=== PATIENT | female | born 1970 | race Caucasian/White ===

== ENCOUNTER 2019-01-08 14:09 | Emergency (ER) | payer MEDICARE, MEDICAID ==
[~2019-01-08] VITALS: Ht 170.2 cm; Wt 68.2 kg
[2019-01-08 14:25] VITALS: Ht 170.2 cm; Wt 68.2 kg
[2019-01-08] MEDS ORDERED: LATUDA40 MG PO (14:26)
[2019-01-08] MEDS ORDERED: NEURONTIN600 MG PO (14:27)
[2019-01-08] MEDS ORDERED: PROTONIX40 MG PO (14:27)
[2019-01-08] MEDS ORDERED: PHENERGAN25 M1 PO (14:27)
[2019-01-08] MEDS ORDERED: ANUSOL-HC25 MG RC (16:48)
[2019-01-08] MEDS ORDERED: DULCOLAX5 MG PO (17:03)
[2019-01-08 17:20] VITALS: BP 125/68
== END 2019-01-08 17:21 | disposition home or self-care (01) ==
LOC: D.ER 14:09
DX: K64.4 Residual hemorrhoidal skin tags (principal); F17.200 Nicotine dependence, unspecified, uncomplicated

== ENCOUNTER 2019-02-04 06:17 | Day surgery (SDC) | payer MEDICARE, MEDICAID ==
[~2019-02-04] VITALS: Ht 170.2 cm; Wt 68.0 kg
[~2019-02-04 06:17] MED LIST: ANUSOL-HC25 MG RC; DULCOLAX5 MG PO; HYDROCODON-ACE1 EAC2 PO; LATUDA40 MG PO; NEURONTIN600 MG PO; PHENERGAN25 M1 PO; PROTONIX40 MG PO
[2019-02-04] MEDS ORDERED: CYCLOBENZAPRINE10 MG PO ×2 (07:22→10:25)
[2019-02-04] MEDS ORDERED: ROBAXIN500 MG PO (07:23)
[2019-02-04 07:24] VITALS: BP 126/72; Ht 170.2 cm; Wt 68.0 kg
[2019-02-04 08:15] LABS: HEMATOCRIT 38.6 % (36.0-48.0); HEMOGLOBIN 13.1 g/dL (12-16); MCH 29.4 pg (26.0-34.0); MCHC 33.9 g/dL (31.0-37.0); MCV 86.5 fL (80.0-100.0); MEAN PLATELET VOLUME 11.8 fL (7.4-10.4); RBC 4.46 10x6/uL (4.00-5.40); RDW 13.3 % (11.5-14.5); WBC 3.8 10x3/uL (4.8-10.8)
[2019-02-04] MEDS ORDERED: MIRALAX17 GM PO (10:26)
[2019-02-04] MEDS ORDERED: HYDROCODON-ACE1 EAC7 PO (10:26)
== END 2019-02-04 12:30 | disposition home or self-care (01) ==
LOC: D.OPS 06:17
PROVIDERS: Anesthesiology; ATTEND Surgery
DX: K64.5 Perianal venous thrombosis (principal); Z01.812 Encounter for preprocedural laboratory examination

== ENCOUNTER 2019-05-19 20:28 | Emergency (ER) | payer MEDICARE, MEDICAID ==
[~2019-05-19] VITALS: Ht 170.2 cm; Wt 70.9 kg
[~2019-05-19 20:28] MED LIST changes: +CYCLOBENZAPRINE10 MG PO; +HYDROCODON-ACE1 EAC7 PO; +MIRALAX17 GM PO; +ROBAXIN500 MG PO
[2019-05-19 20:43] VITALS: Ht 170.2 cm; Wt 70.9 kg
[2019-05-19] MEDS ORDERED: KEFLEX500 MG PO (23:35)
[2019-05-20 00:09] VITALS: BP 123/85
== END 2019-05-20 00:08 | disposition home or self-care (01) ==
LOC: D.ER 20:28
DX: S51.011A Laceration without foreign body of right elbow, initial encounter (principal); W22.8XXA Striking against or struck by other objects, initial encounter

== ENCOUNTER 2020-05-04 07:05 | Day surgery (SDC) | payer MEDICARE, MEDICAID ==
[~2020-05-04] VITALS: Ht 170.2 cm; Wt 66.2 kg
[~2020-05-04 07:05] MED LIST changes: +KEFLEX500 MG PO
[2020-05-04 07:50] LABS: BASOPHILS 0.6 % (0-2); EOSINOPHILS 5.7 % (0-7); HEMATOCRIT 45.4 % (36.0-48.0); HEMOGLOBIN 15.4 g/dL (12-16); IMMATURE GRANULOCYTES 0.2 % (0-5); LYMPHOCYTES 31.8 % (15-50); MCH 29.6 pg (26.0-34.0); MCHC 33.9 g/dL (31.0-37.0); MCV 87.3 fL (80.0-100.0); MEAN PLATELET VOLUME 12.2 fL (7.4-10.4); MONOCYTES 6.9 % (2-11); NEUTROPHILS 54.8 % (40-80); PLATELET COUNT 144 10x3/uL (130-400); RDW 13.3 % (11.5-14.5); WBC 4.9 10x3/uL (4.8-10.8)
[2020-05-04 07:55] LABS: ANION GAP 11.6 mmol/L (8-16); CALCIUM 9.2 mg/dL (8.5-10.1); CARBON DIOXIDE 27.2 mmol/L (21.0-32.0); CREATININE - SERUM 0.9 mg/dL (0.6-1.3); POTASSIUM - SERUM 3.8 mmol/L (3.5-5.1)
[2020-05-04 08:15] VITALS: BP 108/71; Ht 170.2 cm; Wt 66.2 kg
[2020-05-04] MEDS ORDERED: HYDROCODON-ACE1 EA10 PO (08:29)
[2020-05-04] MEDS ORDERED: ZANAFLEX4 MG PO (08:30)
[2020-05-04] MEDS ORDERED: HYDROCODON-ACE1 EAC7 PO (10:38)
--- NOTE | 2020-05-04 13:13 | NUR ---
1235 ALL DC INSTRUCTIONS GIVEN. DC'D HOME. TAKEN OUT VIA W/C TO CAR WITH FRIEND. ADVISED TO CALL OR COME BACK IF ANY PROBLEM.
--- NOTE | 2020-05-05 08:38 | OP ---
PATIENT NAME: LEWIS CM MEDICAL RECORD: [id number] :74 LOCATION:[facility] ADMISSION DATE: SURGEON: CRISTINA ORTIZ MD DATE OF OPERATION: 05/04/2020 SURGEON: Cristina Ortiz MD PREOPERATIVE DIAGNOSES: 1. Recurrent bleeding hemorrhoids, need for screening colonoscopy. 2. Rectal bleeding. PROCEDURE PERFORMED: Colonoscopy and stapled hemorrhoidopexy. ANESTHESIA: General. COMPLICATIONS: None. SPECIMENS: Hemorrhoid tissue. Case was contaminated. OPERATIVE COURSE: After consent was obtained, the patient was taken to the operating room and placed in supine position on the operating room table. General anesthesia was given. A timeout was taken to confirm correct patient and procedure. Next, the patient placed in lithotomy position. The perineum was prepped and draped in typical sterile fashion. The patient had a large protruding internal hemorrhoids. A digital rectal exam was performed. No masses were identified. A colonoscopy was then performed. The scope was inserted into the rectum and advanced. The rectum was insufflated. The scope was advanced to the cecum. Approximately 7 minutes were spent on withdrawal of the colonoscope. Once at the cecum, the ileocecal valve was identified and pictured. During withdrawal, there were no polyps identified. No diverticular disease identified. No masses identified. Once into the rectum, the scope was retroflexed, again noting large internal hemorrhoids. At this time, the scope was removed and the colonoscopy portion of the procedure was terminated. The rectal dilator was placed into the rectum for the PPH device. It was secured to the skin using a 3-0 silk suture, a pursestring suture was then performed circumferentially using a 2-0 Prolene. Once this was complete, the PPH device was inserted. The device was closed encompassing the pursestring suture and rectal mucosa. The device was closed, stapled and deployed. It was held in place for 30 seconds for hemostasis. The device was then removed. The specimen was sent off the field for permanent pathology. Staple line was reinforced using interrupted 3-0 Vicryl suture. During the case, there is no active bleeding. All instrument counts were correct. The rectum was packed with Gelfoam and [place]. The patient tolerated the procedure well and postoperatively, she was transferred to recovery room in satisfactory condition. TRANSINT:[id number] Voice Confirmation ID: [id number] DOCUMENT ID: [id number] OPERATIVE REPORT [id number] LEWIS CM,CRISTINA Atkinson MD at 0838 CC: [id number] DICTATION DATE: 05/04/[address] CONDUCTOR: 05/04/20 1610 [facility] 05/04/20 [place] [id number]
== END 2020-05-04 12:35 | disposition home or self-care (01) ==
LOC: D.OPS 07:05
PROVIDERS: Anesthesiology; ATTEND Surgery
DX: K64.9 Unspecified hemorrhoids (principal); K62.5 Hemorrhage of anus and rectum